=== PATIENT | male | born 1940 | race Caucasian/White ===

== ENCOUNTER → 2017-12-14 | Outpatient (CLI) | payer MEDICARE ==
[~2017-12-14] MED LIST: REGADENOSON 0.4 MG/5 ML DISP.SYRIN. IV ONE
--- NOTE | 2017-12-16 12:13 | PCVCIMAG ---
APPROVED REPORT Study performed: 12/14/2017 09:40:58 Indication: Atrial Fibrillation S/P ablation, Pre-Operative CV evaluation, [facility] Patient Location: Out-Patient Stress Nurse: Neeru Burnette RN [place] Tech:Linda CoatesJOHNIE hennessyMT Ht: 6 ft 3 in Wt: 210 lbs BSA: 2.24 m2 HR: 90 bpm BP: 159/93 mmHg BMI: 26.24 Rhythm: NSR Medical History Medical History: Hyperlipidemia, Atrial Fibrillation, Age Medications: Tamsulosin, Pacitaxel, Pancrelipase Allergies: Opioids Previous Cardiac Procedures: A-fib Ablation Pretest Chest Pain Characteristics: Chest pain Resting Data Rest SPECT myocardial perfusion imaging was performed in supine position 45 minutes following the intravenous injection of 9.9 mCi of Tc-99m Sestamibi. Time of rest injection: 0900 Date: 12/14/2017 Administration Route: IV Administration Site: Right Hand Pharmacologic Stress Pharmacologic stress test was performed by injecting Regadenoson 0.4 mg IV push over 10-15 seconds immediately followed by the intravenous injection of 34.9 mCi of Tc-99m Sestamibi. Time of stress injection: 1015 Date: 12/14/2017 Administration Route: IV Administration Site: Right Hand Gated Stress SPECT was performed 45 minutes after stress injection. The images were gated to evaluate regional wall motion and calculate left ventricular ejection fraction. Comments Prior nuclear stress test 2015: Nonischemic Stress Test Details Stress Test: Exercise stress testing was performed using a Ryan protocol. Reason for pharmacologic stress test: physical limitation. HRMax Heart Rate (APMHR): 145 bpm Resting HR: 90 bpmTarget HR (85% APMHR): 123 bpm Max HR Achieved: 113 bpm % of APMHR: 77 Recovery HR: 77 bpm BP Resting BP: 159/93 mmHg Recovery BP: 154/173 mmHg ECG Resting ECG: Sinus Rhythm Stress ECG: Sinus Tachycardia ST Change: Non-ischemic Arrhythmia: None Recovery ECG: Sinus Rhythm Recovery Arrhythmia: None Clinical Reason for Termination: Completed protocol Stress Symptoms: Lightheaded, Fatigue Exercise duration: 4 min 00 sec Exercise capacity: 1.6 METs Symptoms resolved with caffeine. Study Quality Study: Good Artifact: Mild Diaphragmatic artifact Study Data Post stress, the left ventricular ejection was 64%.. SSS: 3 SRS: 3 SDS: 0 TID = 0.88. Perfusion No evidence of stress induced ischemia or prior myocardial infarction. Wall Motion Normal left ventricular size and function with no regional wall motion abnormalities. Nuclear Conclusion ECG Findings: negative for ischemia Clinical Findings: non-diagnostic Nuclear Findings: negative for ischemia Exercise Capacity: not assessed Left Ventricular Function: normal Risk Study: low No evidence of stress induced ischemia or prior myocardial infarction. Normal left ventricular size and function with no regional wall motion abnormalities. Post stress, the left ventricular ejection was 64%. No prior study available for comparison.
== END | disposition home or self-care (01) ==
LOC: PCVCIMAG 13:08
PROVIDERS: ATTEND Internal Medicine Cardiovascular Disease
DX: I48.91 Unspecified atrial fibrillation (principal); R06.09 Other forms of dyspnea
CPT/HCPCS: 78452; 93017; A9500; J2785